=== PATIENT | female | born 1975 | race African-American/Black ===

== ENCOUNTER 2020-06-23 00:35 | Emergency (ER) | payer MEDICAID ==
[~2020-06-23] VITALS: Ht 172.7 cm; Wt 95.3 kg
[2020-06-23 00:50] VITALS: BP 132/78
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
[2020-06-23] MEDS ORDERED: BACITRACIN ZIN1 EACH TOPIC (01:53)
[2020-06-23] MEDS ORDERED: ACETAMINOPHEN500 M3 ORAL (01:53)
[2020-06-23 01:58] VITALS: BP 128/78
--- NOTE | 2020-06-23 09:22 | Diagnostic Imaging Report ---
INDICATION: Hand pain TECHNIQUE: XRAY Hand Complete L Multiple views of the left hand were obtained COMPARISON: None FINDINGS: There is no acute fracture or dislocation. Joint spaces are maintained. No acute soft tissue abnormality. IMPRESSION: No acute fracture or dislocation.
== END 2020-06-23 01:58 | disposition home or self-care (01) ==
LOC: EMR 01:03
DX: S61.512A Laceration without foreign body of left wrist, initial encounter (principal); W34.00XA Accidental discharge from unspecified firearms or gun, initial encounter; Y93.89 Activity, other specified; Y92.9 Unspecified place or not applicable; Z88.0 Allergy status to penicillin
CPT/HCPCS: 12001; 73130; Z7502; 99283